=== PATIENT | male | born 1980 | race Hispanic/Latino ===

== ENCOUNTER 2017-03-31 09:29 | Emergency (ER) | payer OTHER ==
[2017-03-31 09:38] VITALS: O2SAT 98
[2017-03-31 09:39] VITALS: BMI 31.4
[2017-03-31] MEDS ORDERED: Sodium Chloride 0.9% 1,000 ML IV STA (10:09)
[2017-03-31] MEDS ORDERED: Alum-Mag Hydrox-Simethicone Susp (30 mL) PO STA (10:10)
[2017-03-31 10:23] LABS: BASO % 0.4 % (0.0-2.0); EOS # 0.2 K/uL (0.0-0.7); EOS % 2.2 % (0.0-4.0); LYMPH # 1.7 K/uL (1.0-4.3); LYMPH % 17.6 % (20.0-40.0); MEAN CELL VOLUME 81.2 fl (80.0-94.0); MEAN CORPUSCULAR HEMOGLOBIN 28.7 pg (27.0-31.0); MEAN CORPUSCULAR HGB CONC 35.4 g/dL (33.0-37.0); MEAN PLATELET VOLUME 7.8 fl (7.2-11.7); MONO # 1.1 K/uL (0.0-0.8); MONO % 11.4 % (0.0-10.0); NEUT # 6.5 K/uL (1.8-7.0); NEUT % 68.4 % (50.0-75.0); NRBC % 0.1 % (0.0-0.0); RED CELL DISTRIBUTION WIDTH 13.2 % (11.5-14.5); WHITE BLOOD COUNT 9.5 K/uL (4.8-10.8)
[2017-03-31 10:32] LABS: ALB/GLOB RATIO 1.4 (1.0-2.1); ALKALINE PHOSPHATASE 92 U/L (38-126); ALT/SGPT 65 U/L (21-72); AST/SGOT 61 U/L (17-59); BILIRUBIN,TOTAL 1.6 mg/dl (0.2-1.3); BLOOD UREA NITROGEN 12 mg/dl (9-20); CALCIUM 9.7 mg/dL (8.4-10.2); CARBON DIOXIDE 28 mmol/L (22-30); CHLORIDE 101 mmol/L (98-107); GFR AFRICAN-AMERICAN > 60; GLUCOSE,RANDOM 109 mg/dL (75-110); LIPASE 179 U/L (23-300); POTASSIUM 4.3 MMOL/L (3.6-5.0); SODIUM 142 mmol/l (132-148); TOTAL PROTEIN 8.2 G/DL (6.3-8.2)
[2017-03-31 10:43] LABS: RBC URINE 1 /hpf (0-3); URINE BILIRUBIN NEGATIVE (NEGATIVE); URINE BLOOD NEGATIVE (NEGATIVE); URINE COLOR YELLOW (YELLOW); URINE GLUCOSE (UA) NEG (Normal); URINE KETONE NEGATIVE (NEGATIVE); URINE LEUKOCYTE ESTERASE NEG Leu/uL (Negative); URINE PROTEIN NEGATIVE (NEGATIVE); URINE UROBILINOGEN 0.2-1.0 mg/dL (0.2-1.0); WBC URINE < 1 /hpf (0-5)
[2017-03-31] MEDS ORDERED: Atrop/Hyos/Scop/PhenoB Elixir PO ONE (11:00)
--- NOTE | 2017-03-31 11:04 | ED PDOC ---
HPI: Abdomen Time Seen by Provider: 03/31/17 09:50 Chief Complaint (Nursing): Abdominal Pain Chief Complaint (Provider): Abdominal Pain History Per: Patient History/Exam Limitations: no limitations Onset/Duration Of Symptoms: Days (x3), Intermittent Episodes Current Symptoms Are (Timing): Still Present Pain Scale Rating Of: 7 Quality Of Discomfort: "Pain" Associated Symptoms: Vomiting (non bloody). denies: Fever Exacerbating Factors: Other (worst at night) Last Bowel Movement: Yesterday Additional Complaint(s): Rick Gupta is a 36 year old male, with no past medical history, who presents to the emergency department complaining of a worsening intermittent abdominal pain associated with vomiting onset for 3 days. He reports 1 non bloody vomiting episode last night and decreased sleep secondary to pain. Patient states that he has had this pain for "years" but the pain has been worsening for the past couple of days. Pain is worst at night. He states that he has been evaluated multiple times for the same symptoms. He received an endoscopy in June, which came back normal. He takes Prilosec daily. Last bowel movement was yesterday. He denies any fever or chills. No further medical complaints. PMD: None provided. Past Medical History Reviewed: Historical Data, Nursing Documentation, Vital Signs Vital Signs: Last Vital Signs Temp 97.6 F 03/31/17 13:47 Pulse 84 03/31/17 13:47 Resp 18 03/31/17 13:47 BP 128/78 03/31/17 13:47 Pulse Ox 98 04/02/17 10:29 - Medical History PMH: No Chronic Diseases Denies: Fractures, TIA - Surgical History Other surgeries: Knee surgery - Family History Family History: States: Unknown Family Hx - Social History Current smoker - smoking cessation education provided: No Alcohol: Social Drugs: Denies - Home Medications Home Medications: Ambulatory Orders Medication Instructions Recorded Omeprazole Magnesium [Prilosec Otc] 40 mg PO DAILY 08/23/16 oxyCODONE/Acetaminophen [Percocet 1 tab PO Q6 PRN #20 tab 03/31/17 5/325 mg Tab] - Allergies Allergies/Adverse Reactions: Allergies Allergy/AdvReac Type Severity Reaction Status Date / Time No Known Allergies Allergy Verified 03/31/17 09:41 Review of Systems ROS Statement: Except As Marked, All Systems Reviewed And Found Negative Constitutional: Negative for: Fever, Chills Gastrointestinal: Positive for: Vomiting (non bloody, 1 episode), Abdominal Pain (intermittent) Physical Exam - Reviewed Nursing Documentation Reviewed: Yes Vital Signs Reviewed: Yes - Physical Exam Appears: Positive for: Non-toxic, No Acute Distress Head Exam: Positive for: ATRAUMATIC, NORMAL INSPECTION, NORMOCEPHALIC Skin: Positive for: Normal Color, Warm, Dry Eye Exam: Positive for: EOMI, Normal appearance, PERRL Neck: Positive for: Normal, Painless ROM, Supple Cardiovascular/Chest: Positive for: Regular Rate, Rhythm. Negative for: Murmur Respiratory: Positive for: Normal Breath Sounds. Negative for: Respiratory Distress Gastrointestinal/Abdominal: Positive for: Tenderness (epigastric and Right upper quadrant. ). Negative for: Other (bazan's sign) Back: Positive for: Normal Inspection. Negative for: L CVA Tenderness, R CVA Tenderness Extremity: Positive for: Normal ROM. Negative for: Deformity, Swelling Neurologic/Psych: Positive for: Alert, Oriented - Laboratory Results Result Diagrams: 03/31/17 10:20 03/31/17 10:20 - ECG O2 Sat by Pulse Oximetry: 98 (RA) Pulse Ox Interpretation: Normal Medical Decision Making Medical Decision Making: Initial Impression: Chronic abdominal pain, cholelithiasis, cholecystitis Initial Plan: --EKG --Urine dipstick --Maalox Plus 30 ml PO -- 5 ml PO --Lidocaine 2% Viscous 15 ml PO --NS IV 1,000 ml @ 1,000 mls/hr --Zofran Inj 4 mg IV --Abdomen limited (GB included) [US] --reevaluation 1131 Abdomen US FINDINGS: LIVER: Measures 17.6 cm in length. There is mild diffuse increased echogenicity of the liver parenchyma. No mass. No intrahepatic bile duct dilatation. GALLBLADDER: The gallbladder is distended, filled with sludge and there is mild wall thickening. No pericholecystic fluid or gallstones. The sonographic Bazan's sign is positive. COMMON BILE DUCT: Measures 4.4 mm. No stones. No dilatation. PANCREAS: Unremarkable as visualized. No mass. No ductal dilatation. RIGHT KIDNEY: Measures 12.4 cm in length. Normal echogenicity. No calculus, mass, or hydronephrosis. AORTA: No aneurysmal dilatation. IVC: Unremarkable. OTHER FINDINGS: None . IMPRESSION: 1. Mild hepatomegaly. Diffuse increased echogenicity in the liver may reflect hepatic steatosis however parenchymal infectious/ inflammatory etiologies cannot be entirely excluded. Clinical and laboratory correlation is advised. 2. Distended sludge filled gallbladder with mild wall thickening and positive sonographic Bazan's sign, the constellation of findings in the appropriate clinical setting could represent acute cholecystitis. Pt evaluated by engineering vice president in ED. Scribe Attestation: Documented by Castillo Drake, acting as a scribe for Shruthi Holt MD Provider Scribe Attestation: All medical record entries made by the Scribe were at my direction and personally dictated by me. I have reviewed the chart and agree that the record accurately reflects my personal performance of the history, physical exam, medical decision making, and the department course for this patient. I have also personally directed, reviewed, and agree with the discharge instructions and disposition. Disposition - Clinical Impression Clinical Impression: Biliary colic, Cholecystectomy planned - Disposition Referrals: Colin Aguayo MD [Staff Provider] - Disposition Time: 13:28 Condition: STABLE Additional Instructions: PLAN FOR GALLBLADDER REMOVAL ON MONDAY. Prescriptions: oxyCODONE/Acetaminophen [Percocet 5/325 mg Tab] 1 tab PO Q6 PRN #20 tab PRN Reason: Pain, Moderate (4-7) Instructions: Biliary Colic (ED) Forms: [email or web address] (Yi)
--- NOTE | 2017-03-31 11:33 | US ---
HISTORY: Epigastric/RUQ pain COMPARISON: None. TECHNIQUE: Sonographic evaluation of the right upper quadrant of the abdomen. FINDINGS: LIVER: Measures 17.6 cm in length. There is mild diffuse increased echogenicity of the liver parenchyma. No mass. No intrahepatic bile duct dilatation. GALLBLADDER: The gallbladder is distended, filled with sludge and there is mild wall thickening. No pericholecystic fluid or gallstones. The sonographic Bazan's sign is positive. COMMON BILE DUCT: Measures 4.4 mm. No stones. No dilatation. PANCREAS: Unremarkable as visualized. No mass. No ductal dilatation. RIGHT KIDNEY: Measures 12.4 cm in length. Normal echogenicity. No calculus, mass, or hydronephrosis. AORTA: No aneurysmal dilatation. IVC: Unremarkable. OTHER FINDINGS: None . IMPRESSION: 1. Mild hepatomegaly. Diffuse increased echogenicity in the liver may reflect hepatic steatosis however parenchymal infectious/ inflammatory etiologies cannot be entirely excluded. Clinical and laboratory correlation is advised. 2. Distended sludge filled gallbladder with mild wall thickening and positive sonographic Bazan's sign, the constellation of findings in the appropriate clinical setting could represent acute cholecystitis.
[2017-03-31 13:48] VITALS: BP 128/78; PULSE 84; RESP 18; TEMP 97.6
--- NOTE | 2017-04-03 12:44 | CARD ---
APPROVED REPORT EKG Measurement Heart [id number] SD [id number] [id number] <Conclusion> Normal sinus rhythm Normal ECG
== END 2017-03-31 13:51 | disposition home or self-care (01) ==
LOC: H.ER 09:29
DX: K80.64 Calculus of gallbladder and bile duct with chronic cholecystitis without obstruction (principal); G89.29 Other chronic pain
CPT/HCPCS: 76705; 80053; 81003; 83690; 85025; 93005; 96374; 99285; J2405; J7040

== ENCOUNTER 2017-04-03 12:11 | Inpatient (IN) | payer OTHER ==
--- NOTE | 2017-04-03 12:41 | CP.SDSHP ---
Same Day Surgery H & P - History Proposed Procedure: Laparoscopic Cholecystectomy w/ intraoperative cholangiogram Pre-Op Diagnosis: biliary cholic - Previous Medical/Surgical History Misc: Other (GERD) Previous Surgical History: left knee arthroscopy - Allergies Allergies: Allergies No Known Allergies Allergy (Verified 03/31/17 09:41) - Physical Exam General Appearance: non-toxic Vital Signs: Temp Pulse Resp BP Pulse Ox 99.8 F H 91 H 20 138/89 96 04/03/17 17:02 04/03/17 17:02 04/03/17 17:02 04/03/17 17:02 04/03/17 17:02 Mental Status: Alert & Oriented x3 Neuro: WNL Heart: WNL Lungs: WNL GI: WNL - {Optional Preform as Required} Abdomen: Other (RUQ TTP) - Impression Impression: 36 y/o M w/ biliary cholic, transaminitis, hyperbilirubinema Pt. Evaluated Today:Candidate for Anesthesia & Procedure: No (f/u MRCP and GI recommendations) - Date & Time Date: 04/03/17 Time: 12:41 Short Stay Discharge - Short Stay Discharge Admitting Diagnosis/Reason for Visit: K80.51 Referrals: FAMILY PROVIDER,NO [Primary Care Provider] -
[2017-04-03] MEDS ORDERED: Lidocaine 1% Inj (20ml) ONE (12:52)
[2017-04-03] MEDS ORDERED: Iohexol 300 100 ML IJ ONE (12:53)
[2017-04-03] MEDS ORDERED: Bupivacaine 0.5% Inj(30mL) ONE (12:53)
[2017-04-03] MEDS ORDERED: ceFAZolin IV 1 gm in Dextrose 0 GM/0 ML BAG IVPB ONE (12:53)
[2017-04-03 13:27] LABS: ALB/GLOB RATIO 1.2 (1.0-2.1); ALKALINE PHOSPHATASE 135 U/L (38-126); ALT/SGPT 109 U/L (21-72); AST/SGOT 85 U/L (17-59); BILIRUBIN,TOTAL 2.3 mg/dl (0.2-1.3); BLOOD UREA NITROGEN 17 mg/dl (9-20); CALCIUM 9.5 mg/dL (8.4-10.2); CARBON DIOXIDE 22 mmol/L (22-30); CHLORIDE 102 mmol/L (98-107); GFR AFRICAN-AMERICAN > 60; GLUCOSE,RANDOM 104 mg/dL (75-110); SODIUM 139 mmol/l (132-148); TOTAL PROTEIN 8.5 G/DL (6.3-8.2)
[2017-04-03 13:30] LABS: MEAN CELL VOLUME 82.1 fl (80.0-94.0); MEAN CORPUSCULAR HEMOGLOBIN 29.1 pg (27.0-31.0); MEAN CORPUSCULAR HGB CONC 35.4 g/dL (33.0-37.0); RED CELL DISTRIBUTION WIDTH 13.4 % (11.5-14.5); WHITE BLOOD COUNT 9.8 K/uL (4.8-10.8)
[2017-04-03] MEDS ORDERED: Propofol 10 mg/ml Inj (20 ML) ONE (13:32)
[2017-04-03] MEDS ORDERED: Midazolam 2 MG/2 ML VIAL ONE (13:32)
[2017-04-03] MEDS ORDERED: Lidocaine 4% (Laryng-O-Jet) Kit MM ONE (13:33)
[2017-04-03] MEDS ORDERED: Neostigmine Methylsulfate 2 MG/2 ML ML IV ONE (13:33)
[2017-04-03] MEDS ORDERED: Succinylcholine 200 mg/10 ml Inj IV ONE (13:33)
[2017-04-03] MEDS ORDERED: Rocuronium 10 mg/ml (5 ml) ONE (13:34)
[2017-04-03] MEDS ORDERED: Lidocaine 1% 5ml Abboject IV ONE (13:34)
[2017-04-03] MEDS ORDERED: Sodium Chloride 0.9% 50 ML IV ONE (14:17)
[2017-04-03] MEDS ORDERED: Gadodiamide 287 MG/ML VIAL (15ML) IV ONE (14:17)
[2017-04-03] MEDS: Sodium Chloride 0.9% 1,000 ML IV SCH (16:15)
--- NOTE | 2017-04-03 16:29 | MRI ---
PROCEDURE: Magnetic Resonance Cholangiopancreatography HISTORY: Hyperbilirubinemia, transaminitis, biliary colic COMPARISON: Comparison is made to the previous ultrasound of the abdomen dated 03/31/[address] of the abdomen dated 09/15/2010. TECHNIQUE: Multiplanar, multisequence MR images of the abdomen were obtained, including heavily T2 weighted MRCP images of the biliary system. Rotating maximum intensity projection images of the biliary system were generated. FINDINGS: MRCP: The common bile duct is of a normal caliber. No evidence of choledocholithiasis. No intrahepatic biliary ductal dilatation. LIVER: Liver is normal in size without evidence of focal lesion. There is a slight hepatic steatosis noted. The portal vein is patent. GALLBLADDER: The gallbladder is mildly distended demonstrate diffuse wall thickening surrounding with pericholecystic fluid. There is 9 millimeter stone at the gallbladder neck. Findings highly suspicious for acute cholecystitis. SPLEEN: Unremarkable. PANCREAS: Unremarkable. ADRENALS: Unremarkable. KIDNEYS: Unremarkable. AORTA: No aneurysm. ASCITES: None. OTHER FINDINGS: None. IMPRESSION: Findings suggestive of acute cholecystitis. Normal caliber of the common bile duct without evidence of choledocholithiasis. Slight hepatic steatosis.
[2017-04-03] MEDS: DiphenhydrAMINE 50 mg/ml Inj IVP PRN (22:23)
[2017-04-03] MEDS: Piperacillin/Tazobact 3.375 GM in Sodium Chloride 0.9% 100 ML IVPB SCH (22:23)
--- NOTE | 2017-04-03 22:40 | CP.PCM.CON ---
<Supriya Plummer - Last Filed: 04/03/17 22:48> History of Present Illness - History of Present Illness History of Present Illness: PGY4 Initial GI Consult Rick Gupta is a 36M w/ hx of chronic abd pain who presented to the ER with complaint of RUQ pain. Pt states that he has had this pain for more than a year. He notes that he has had multiple imaging studies including abd u/s and EGD. In the past, he notes that nothing was found. He states that his abd pain is located in the RUQ and radiates to his back. He notes that the pain start 3 days ago. He denies any aggrevating or alleviating factors. He was evaluated in the ER for possible Lap Marlys by surgery. His MRCP revealed a possible distal cytic duct filling defect and elevated LFTs. Pt's surgery was postponed until further GI eval. He denies nay hx of juandice or scleral icterus. He denies any previous hospitalizations for liver related issues. Denies any fever, chills or diaphoresis. Denies BRBPR, melena, or coffee-ground emesis. PMHx: none PSHx: none Family Hx: denies any GI cancer Social hx: denies smoking, social etoh, denies recreation drugs Endoscopy hx: 06/2016: EGD h. pylori neg, gastritis ROS: other than above, ROS is otherwise neg Past Patient History - Past Medical History & Family History Past Medical History?: No - Past Social History Smoking Status: Never Smoked - CARDIAC Hx Heart Attack: No - PULMONARY Hx Respiratory Disorders: No - NEUROLOGICAL Hx Neurological Disorder: No Hx Transient Ischemic Attacks (TIA): No - HEENT Hx HEENT Problems: No - RENAL Hx Chronic Kidney Disease: No - ENDOCRINE/METABOLIC Hx Endocrine Disorders: No - HEMATOLOGICAL/ONCOLOGICAL Hx Blood Disorders: No Hx Blood Transfusions: No - MUSCULOSKELETAL/RHEUMATOLOGICAL Hx Falls: No Hx Fractures: No - GASTROINTESTINAL Hx Gastrointestinal Disorders: No Other/Comment: heart burn - PSYCHIATRIC Hx Physical Abuse: No Hx Substance Use: No - SURGICAL HISTORY Hx Surgeries: Yes Hx Arthroscopy: Yes (Left knee 1992, 1993) Hx Eye Surgery: Yes (Lasik 2011) Other/Comment: Left ankle surgery 2002 - ANESTHESIA Hx Anesthesia: Yes Hx Anesthesia Reactions: No Hx Malignant Hyperthermia: No Has any member of the family had a problem w/ anesthesia?: No Meds Allergies/Adverse Reactions: Allergies Allergy/AdvReac Type Severity Reaction Status Date / Time cat dander Allergy SWELLING Verified 04/03/17 15:36 - Medications Medications: Current Medications Diphenhydramine HCl (Benadryl) 50 mg IVP HS PRN PRN Reason: Sleep Hydromorphone HCl (Dilaudid) 1 mg IVP Q3 PRN PRN Reason: Pain, moderate (4-7) Last Admin: 04/03/17 20:11 Dose: 1 mg Sodium Chloride (Sodium Chloride 0.9%) 1,000 mls @ 120 mls/hr IV .Q8H20M PATRICIA Last Admin: 04/03/17 16:15 Dose: 120 mls/hr Piperacillin Sod/Tazobactam (Sod 3.375 gm/ Sodium Chloride) 100 mls @ 100 mls/ hr IVPB Q6 PATRICIA PRN Reason: Protocol Ondansetron HCl (Zofran Inj) 4 mg IVP Q4 PRN PRN Reason: Nausea/Vomiting Pantoprazole Sodium (Protonix Inj) 40 mg IVP DAILY PATRICIA Physical Exam - Constitutional Appears: Well, No Acute Distress - Head Exam Head Exam: ATRAUMATIC, NORMOCEPHALIC - Eye Exam Eye Exam: Normal appearance - ENT Exam ENT Exam: Mucous Membranes Moist, Normal Exam - Neck Exam Neck exam: Positive for: Normal Inspection - Respiratory Exam Respiratory Exam: Clear to Auscultation Bilateral, NORMAL BREATHING PATTERN. absent: Rales, Rhonchi, Wheezes, Respiratory Distress - Cardiovascular Exam Cardiovascular Exam: REGULAR RHYTHM, +S1, +S2 - GI/Abdominal Exam GI & Abdominal Exam: Normal Bowel Sounds, Soft, Tenderness (RUQ). absent: Distended, Guarding, Organomegaly, Rebound, Rigid - Neurological Exam Neurological exam: Alert, Oriented x3 - Psychiatric Exam Psychiatric exam: Normal Affect, Normal Mood - Skin Skin Exam: Dry, Intact, Normal Color, Warm Results - Vital Signs Recent Vital Signs: Last Vital Signs Temp 99.8 F H 04/03/17 17:02 Pulse 91 H 04/03/17 17:02 Resp 20 04/03/17 17:02 BP 138/89 04/03/17 17:02 Pulse Ox 96 04/03/17 17:02 - Labs Result Diagrams: 04/03/17 13:11 04/03/17 13:11 Labs: Laboratory Results - last 24 hr 04/03/17 04/03/17 13:11 13:11 WBC 9.8 RBC 5.11 Hgb 14.9 Hct 42.0 MCV 82.1 MCH 29.1 MCHC 35.4 RDW 13.4 Plt Count 259 Sodium 139 Potassium 4.0 Chloride 102 Carbon Dioxide 22 Anion Gap 19 BUN 17 Creatinine 1.0 Est GFR ( Amer) > 60 Est GFR (Non-Af Amer) > 60 Random Glucose 104 Calcium 9.5 Total Bilirubin 2.3 H AST 85 H D ALT 109 H D Alkaline Phosphatase 135 H D Total Protein 8.5 H Albumin 4.6 Globulin 3.8 Albumin/Globulin Ratio 1.2 Assessment & Plan - Assessment and Plan (Free Text) Assessment: Rick Gupta is a 36M w/ no sog hx who presents with RUQ maxwell. Etiology is likely biliary colic with possible obstructing distal CBD stone vs cystic stone. Pt also presented with elevated LFTs likely 2/2 previous. 1. Acute Cholecystitis 2. Proximal Cystic duct stone 3. Possible Distal CBD filling defect 4. Elevated LFTs likely 2/2 to the above, r/o infectous etiology Plan: -will check viral serologies -will setup for EUS and possible ERCP if indicated tomorrow at [place] around 11 pm -[place] need transport [place] [facility] [place]NPO after midnight -recheck LFTs tomorrow, INR -informed nurse and spoke to setup transport -Dr. Edouard to perform procedure -Continue abx -rest of plan as per Surgery D/W Dr. Pacheco <Lex Pacheco MD - Last Filed: 04/04/17 10:46> Meds - Medications Medications: Current Medications Diphenhydramine HCl (Benadryl) 50 mg IVP HS PRN PRN Reason: Sleep Last Admin: 04/03/17 22:23 Dose: 50 mg Hydromorphone HCl (Dilaudid) 0.5 mg IVP Q2 PRN PRN Reason: Pain, moderate (4-7) Stop: 04/06/17 08:35 Sodium Chloride (Sodium Chloride 0.9%) 1,000 mls @ 120 mls/hr IV .Q8H20M [facility] Last Admin: 04/04/17 07:30 Dose: Not Given Piperacillin Sod/Tazobactam (Sod 3.375 gm/ Sodium Chloride) 100 mls @ 100 mls/ hr IVPB Q6 PATRICIA PRN Reason: Protocol Last Admin: 04/04/17 09:13 Dose: Not Given Ondansetron HCl (Zofran Inj) 4 mg IVP Q4 PRN PRN Reason: Nausea/Vomiting Pantoprazole Sodium (Protonix Inj) 40 mg IVP DAILY PATRICIA Last Admin: 04/04/17 09:12 Dose: Not Given Results - Vital Signs Recent Vital Signs: Last Vital Signs Temp 98.2 F 04/04/17 07:33 Pulse 85 04/04/17 07:33 Resp 20 04/04/17 07:33 BP 130/84 04/04/17 07:33 Pulse Ox 96 04/04/17 07:33 - Labs Result Diagrams: 04/03/17 13:11 04/03/17 13:11 Labs: Laboratory Results - last 24 hr 04/03/17 04/03/17 04/04/17 13:11 13:11 05:30 WBC 9.8 RBC 5.11 Hgb 14.9 Hct 42.0 MCV 82.1 MCH 29.1 MCHC 35.4 RDW 13.4 Plt Count 259 PT 13.4 H INR 1.2 Sodium 139 Potassium 4.0 Chloride 102 Carbon Dioxide 22 Anion Gap 19 BUN 17 Creatinine 1.0 Est GFR ( Amer) > 60 Est GFR (Non-Af Amer) > 60 Random Glucose 104 Calcium 9.5 Total Bilirubin 2.3 H AST 85 H D ALT 109 H D Alkaline Phosphatase 135 H D Total Protein 8.5 H Albumin 4.6 Globulin 3.8 Albumin/Globulin Ratio 1.2 Attending/Attestation - Attestation I have personally seen and examined this patient.: Yes I have fully participated in the care of the patient.: Yes I have reviewed all pertinent clinical information: Yes Notes (Text): 04/04/17 10:44 Patient seen with GI fellow last night. Late entry- This is a 36M yr old M who presents with RUQ pain with acute cholecystitis. MRCP concerning for ? distal CBD stone. He is scheduled for EUS at [facility] prior to [facility]. If positive will get ERCP. This was discussed with patient and girlfriend at bedside last night. NPO past midnight. Send coagulation profil. Discussed with surgical team
[2017-04-04] MEDS: Sodium Chloride 0.9% 1,000 ML IV SCH ×4 (00:49→23:05)
[2017-04-04] MEDS: Piperacillin/Tazobact 3.375 GM in Sodium Chloride 0.9% 100 ML IVPB SCH ×5 (05:03→21:05)
--- NOTE | 2017-04-04 08:33 | CP.PCM.PN ---
Subjective - Date & Time of Evaluation Date of Evaluation: 04/04/17 Time of Evaluation: 06:45 - Subjective Subjective: General Surgery- Dr. Aguayo Patient seen and examined at bedside this morning. RUQ abd pain still present however managed w/ current pain regiment. Currently NPO. Denies fevers, chills, chest pain, shortness of breath, nausea, vomiting, diarrhea. Objective - Vital Signs/Intake and Output Vital Signs (last 24 hours): Temp Pulse Resp BP Pulse Ox 98.2 F 85 20 130/84 96 04/04/17 07:33 04/04/17 07:33 04/04/17 07:33 04/04/17 07:33 04/04/17 07:33 - Medications Medications: Current Medications Diphenhydramine HCl (Benadryl) 50 mg IVP HS PRN PRN Reason: Sleep Last Admin: 04/03/17 22:23 Dose: 50 mg Hydromorphone HCl (Dilaudid) 1 mg IVP Q3 PRN PRN Reason: Pain, moderate (4-7) Last Admin: 04/04/17 05:07 Dose: 1 mg Sodium Chloride (Sodium Chloride 0.9%) 1,000 mls @ 120 mls/hr IV .Q8H20M PATRICIA Last Admin: 04/04/17 00:49 Dose: 120 mls/hr Piperacillin Sod/Tazobactam (Sod 3.375 gm/ Sodium Chloride) 100 mls @ 100 mls/ hr IVPB Q6 PATRICIA PRN Reason: Protocol Last Admin: 04/04/17 05:03 Dose: 100 mls/hr Ondansetron HCl (Zofran Inj) 4 mg IVP Q4 PRN PRN Reason: Nausea/Vomiting Pantoprazole Sodium (Protonix Inj) 40 mg IVP DAILY PATRICIA - Labs Labs: 04/03/17 13:11 04/03/17 13:11 PT 13.4 Seconds (9.8-13.1) H 04/04/17 05:30 INR 1.2 (0.9-1.2) 04/04/17 05:30 - Constitutional Appears: Non-toxic, No Acute Distress - Head Exam Head Exam: ATRAUMATIC - Eye Exam Eye Exam: EOMI. absent: Scleral icterus - ENT Exam ENT Exam: Mucous Membranes Moist - Respiratory Exam Respiratory Exam: NORMAL BREATHING PATTERN. absent: Accessory Muscle Use, Respiratory Distress - Cardiovascular Exam Cardiovascular Exam: +S1, +S2. absent: Bradycardia, Tachycardia - GI/Abdominal Exam GI & Abdominal Exam: Guarding, Soft, Tenderness. absent: Distended, Firm, Rigid , Organomegaly, Rebound Additional comments: Tender to RUQ voluntary guarding to palpation - Extremities Exam Extremities Exam: Normal Inspection. absent: Calf Tenderness - Back Exam Back Exam: NORMAL INSPECTION. absent: CVA tenderness (L), CVA tenderness (R) - Neurological Exam Neurological Exam: Alert, Awake, Oriented x3 - Psychiatric Exam Psychiatric exam: Normal Affect - Skin Skin Exam: Intact, Warm Assessment and Plan - Assessment and Plan (Free Text) Assessment: 36M w/ acute cholecystitis Plan: - GI plan for EUS possible ERCP at [facility] - plan for cholecystectomy tomorrow - anti-emetic and pain control PRN - IVF & Abx - GI/DVT ppx - further recs per Dr. Olivier Dominguez PGY1
[2017-04-04] MEDS: DiphenhydrAMINE 50 mg/ml Inj IVP PRN (22:20)
[2017-04-05] MEDS: Sodium Chloride 0.9% 1,000 ML IV SCH ×4 (02:47→23:00)
[2017-04-05] MEDS: Piperacillin/Tazobact 3.375 GM in Sodium Chloride 0.9% 100 ML IVPB SCH ×4 (03:16→22:27)
[2017-04-05] MEDS ORDERED: Bupivacaine 0.5% Inj(30mL) ONE (08:47)
[2017-04-05] MEDS ORDERED: ceFAZolin IV 1 gm in Dextrose 0 GM/0 ML BAG IVPB ONE (08:48)
[2017-04-05] MEDS ORDERED: Rocuronium 10 mg/ml (5 ml) ONE ×2 (09:10→10:30)
[2017-04-05] MEDS ORDERED: Succinylcholine 200 mg/10 ml Inj IV ONE (09:10)
[2017-04-05] MEDS ORDERED: Propofol 10 mg/ml Inj (20 ML) ONE ×2 (09:11→09:50)
[2017-04-05] MEDS ORDERED: Lidocaine 4% (Laryng-O-Jet) Kit MM ONE (09:11)
[2017-04-05] MEDS ORDERED: Lidocaine 2% MPF (5 ml) Inj ONE (09:11)
[2017-04-05] MEDS ORDERED: Midazolam 2 MG/2 ML VIAL ONE (09:44)
[2017-04-05] MEDS ORDERED: Lactated Ringer's 1,000 ML IV ONE ×4 (09:45→12:25)
[2017-04-05] MEDS ORDERED: Bupivacaine 0.5% 50 ML IJ ONE ×3 (10:00)
[2017-04-05] MEDS ORDERED: Desflurane Inhalation Anesthetic Liq (240 ml) ONE (10:04)
[2017-04-05] MEDS ORDERED: Neostigmine Methylsulfate 3mg/3ml Syringe IV ONE (11:23)
[2017-04-05] MEDS ORDERED: Edrophonium Chloride 10 MG/ML IJ ONE (11:27)
[2017-04-05] MEDS ORDERED: Neostigmine Methylsulfate 2 MG/2 ML ML IV ONE (11:28)
--- NOTE | 2017-04-05 11:28 | CP.PCM.PCO ---
Physician Communication Note - Physician Communication Note Physician Communication Note: s/p ERCp with sludge. For OR today. Will sign off
[2017-04-05] MEDS ORDERED: Dexamethasone 4 mg/1 ml ONE (11:31)
--- NOTE | 2017-04-05 12:51 | PCM.SURG1 ---
Surgeon's Initial Post Op Note - Surgeon's Notes Surgeon: Dr Aguayo Soda Dispenser: Dr Cottrell PGY3, Dr Arenas PGY2, Dr Dominguez PGY1 Type of Anesthesia: General Endo Pre-Operative Diagnosis: Acute cholecystitis Operative Findings: see report for full detail Post-Operative Diagnosis: Acute Cholecystitis Operation Performed: laparoscopic cholecystectomy Specimen/Specimens Removed: gallbladder. gallbladder fluid Estimated Blood Loss: EBL {In ML}: 700 Blood Products Given: N/A Drains Used: García Post-Op Condition: Good Date of Surgery/Procedure: 04/05/17 Time of Surgery/Procedure: 12:51
[2017-04-05] MEDS ORDERED: HYDROmorphone 0.5 mg/0.5 ml ISec IVP PRN (12:55)
[2017-04-05] MEDS: HYDROmorphone 0.5 mg/0.5 ml ISec IVP PRN ×4 (12:57→13:47)
[2017-04-05 15:27] LABS: HEMATOCRIT 35.5 % (35.0-51.0); MEAN CELL VOLUME 81.2 fl (80.0-94.0); MEAN CORPUSCULAR HEMOGLOBIN 28.9 pg (27.0-31.0); MEAN CORPUSCULAR HGB CONC 35.6 g/dL (33.0-37.0); WHITE BLOOD COUNT 8.4 K/uL (4.8-10.8)
[2017-04-05] MEDS: DiphenhydrAMINE 50 mg/ml Inj IVP PRN (23:43)
[2017-04-06] MEDS: Sodium Chloride 0.9% 1,000 ML IV SCH ×5 (00:10→21:28)
[2017-04-06] MEDS: Piperacillin/Tazobact 3.375 GM in Sodium Chloride 0.9% 100 ML IVPB SCH ×4 (04:00→21:29)
[2017-04-06 06:55] LABS: HEMATOCRIT 31.4 % (35.0-51.0); MEAN CELL VOLUME 80.6 fl (80.0-94.0); MEAN CORPUSCULAR HEMOGLOBIN 28.7 pg (27.0-31.0); MEAN CORPUSCULAR HGB CONC 35.6 g/dL (33.0-37.0); RED CELL DISTRIBUTION WIDTH 13.1 % (11.5-14.5); WHITE BLOOD COUNT 7.5 K/uL (4.8-10.8)
[2017-04-06 07:10] LABS: ALB/GLOB RATIO 1.1 (1.0-2.1); ALKALINE PHOSPHATASE 91 U/L (38-126); ALT/SGPT 101 U/L (21-72); AST/SGOT 94 U/L (17-59); BILIRUBIN,TOTAL 1.3 mg/dl (0.2-1.3); BLOOD UREA NITROGEN 10 mg/dl (9-20); CALCIUM 8.5 mg/dL (8.4-10.2); CARBON DIOXIDE 25 mmol/L (22-30); CHLORIDE 103 mmol/L (98-107); GFR AFRICAN-AMERICAN > 60; GLUCOSE,RANDOM 109 mg/dL (75-110); POTASSIUM 3.8 MMOL/L (3.6-5.0); SODIUM 137 mmol/l (132-148); TOTAL PROTEIN 6.4 G/DL (6.3-8.2)
--- NOTE | 2017-04-06 07:23 | CP.PCM.PN ---
Subjective - Date & Time of Evaluation Date of Evaluation: 04/06/17 Time of Evaluation: 06:00 - Subjective Subjective: General Surgery Note for Dr. Aguayo Patient seen and examined at bedside. No acute event overnight. Patient resting in bed comfortably. He is s/p laparoscopic cholecystectomy POD#1. Patient complaining of mild abdominal pain. He is tolerating CLD. He denies nausea/ vomiting. WILLA drain produced 60 cc of sanguinous output in last 12 hrs. No other complaints at this time. Objective - Vital Signs/Intake and Output Vital Signs (last 24 hours): Temp Pulse Resp BP Pulse Ox 99.5 F 97 H 19 119/76 92 L 04/06/17 04:00 04/06/17 04:00 04/06/17 04:00 04/06/17 04:00 04/06/17 04:00 Intake and Output: 04/06/17 04/06/17 06:59 18:59 Output Total 60 Balance -60 - Medications Medications: Current Medications Diphenhydramine HCl (Benadryl) 50 mg IVP HS PRN PRN Reason: Sleep Last Admin: 04/05/17 23:43 Dose: 50 mg Hydromorphone HCl (Dilaudid) 1 mg IVP Q3H PRN PRN Reason: Pain, moderate (4-7) Stop: 04/06/17 08:35 Last Admin: 04/06/17 04:03 Dose: 1 mg Sodium Chloride (Sodium Chloride 0.9%) 1,000 mls @ 120 mls/hr IV .Q8H20M [facility] Last Admin: 04/05/17 08:52 Dose: 120 mls/hr Piperacillin Sod/Tazobactam (Sod 3.375 gm/ Sodium Chloride) 100 mls @ 100 mls/ hr IVPB Q6 PATRICIA PRN Reason: Protocol Last Admin: 04/06/17 04:00 Dose: 100 mls/hr Sodium Chloride (Sodium Chloride 0.9%) 1,000 mls @ 100 mls/hr IV .Q10H [facility] Last Admin: 04/05/17 20:06 Dose: 100 mls/hr Ondansetron HCl (Zofran Inj) 4 mg IVP Q4 PRN PRN Reason: Nausea/Vomiting Pantoprazole Sodium (Protonix Inj) 40 mg IVP DAILY [facility] Last Admin: 04/05/17 08:52 Dose: 40 mg - Labs Labs: 04/06/17 06:15 04/06/17 06:15 PT 13.4 Seconds (9.8-13.1) H 04/04/17 05:30 INR 1.2 (0.9-1.2) 04/04/17 05:30 - Constitutional Appears: No Acute Distress - Head Exam Head Exam: ATRAUMATIC, NORMOCEPHALIC - Eye Exam Eye Exam: Normal appearance - ENT Exam ENT Exam: Mucous Membranes Moist - Respiratory Exam Respiratory Exam: NORMAL BREATHING PATTERN - Cardiovascular Exam Cardiovascular Exam: REGULAR RHYTHM - GI/Abdominal Exam GI & Abdominal Exam: Soft, Tenderness. absent: Distended, Firm, Guarding, Rigid , Rebound Additional comments: incision site dressings clean, dry and intact - Extremities Exam Extremities Exam: Normal Capillary Refill - Neurological Exam Neurological Exam: Alert, Awake, Oriented x3 - Psychiatric Exam Psychiatric exam: Normal Affect, Normal Mood - Skin Skin Exam: Dry, Intact, Normal Color, Warm Assessment and Plan - Assessment and Plan (Free Text) Plan: 36 M s/p laparoscopic cholecystectomy POD #1 -CLD, ADAT -IV fluids -IV Antibiotics -Analgesics/Anti-emetics PRN -OOB/Encourage ambulation/IS -Discussed with Dr. Olivier Deluca PGY1
[2017-04-06] MEDS: Oxycodone/Acetaminophen 5/325 mg Tab PO PRN ×3 (11:16→20:28)
[2017-04-06] MEDS: DiphenhydrAMINE 50 mg/ml Inj IVP PRN (22:16)
[2017-04-07] MEDS: Oxycodone/Acetaminophen 5/325 mg Tab PO PRN (02:03)
[2017-04-07] MEDS: Piperacillin/Tazobact 3.375 GM in Sodium Chloride 0.9% 100 ML IVPB SCH ×3 (04:41→16:09)
[2017-04-07] MEDS: Sodium Chloride 0.9% 1,000 ML IV SCH ×4 (05:01→15:21)
[2017-04-07 06:46] LABS: HEMATOCRIT 30.9 % (35.0-51.0); MEAN CELL VOLUME 82.7 fl (80.0-94.0); MEAN CORPUSCULAR HGB CONC 35.1 g/dL (33.0-37.0); RED CELL DISTRIBUTION WIDTH 12.9 % (11.5-14.5); WHITE BLOOD COUNT 7.4 K/uL (4.8-10.8)
[2017-04-07 06:57] LABS: ALKALINE PHOSPHATASE 96 U/L (38-126); ALT/SGPT 105 U/L (21-72); AST/SGOT 89 U/L (17-59); BILIRUBIN,TOTAL 1.4 mg/dl (0.2-1.3); BLOOD UREA NITROGEN 9 mg/dl (9-20); CALCIUM 8.4 mg/dL (8.4-10.2); CARBON DIOXIDE 28 mmol/L (22-30); CHLORIDE 103 mmol/L (98-107); GFR AFRICAN-AMERICAN > 60; GLUCOSE,RANDOM 106 mg/dL (75-110); POTASSIUM 4.3 MMOL/L (3.6-5.0); SODIUM 139 mmol/l (132-148); TOTAL PROTEIN 6.4 G/DL (6.3-8.2)
[2017-04-07 07:07] LABS: ALB/GLOB RATIO 1.1 (1.0-2.1)
--- NOTE | 2017-04-07 08:19 | OP ---
PROCEDURE DATE: Rick Gupta is admitted to [facility], having had symptoms consistent with chronic cholecystitis and acute cholecystitis recently. An ERCP was done yesterday by Dr. Edouard showing sludge and possible small stone. A sphincterotomy was done. Slight elevations in liver functions are noted. PREOPERATIVE DIAGNOSES: Iavle-ej-rghkwph cholecystitis and lithiasis. OPERATION PERFORMED: Laparoscopic cholecystectomy. SURGEON: Colin Aguayo MD FILM DEVELOPER: . ESTIMATED BLOOD LOSS: 100 mL. COMPLICATIONS: None. FINDINGS: Acute cholecystitis with tremendous amount of inflammation. DESCRIPTION OF PROCEDURE: In the operating room, patient was identified by name, name of procedure, laterality, my leonard, the consent, his birthday, and number. I had a long discussion of the risks and benefits in the presence of, I believe, the fiancee, and he understands and accepts. Having achieved a successful time-out with the abdomen prepped and draped with chlorhexidine and the usual drapes, the abdomen was accessed through the Veress needle to the supraumbilical fold. The Visiport was placed and laparoscopy performed without issue. Clearly, in the right upper quadrant, there was inflammation with the omentum caking on to the gallbladder. A xiphoid 5 and two lateral 5s were placed and the omentum was peeled off the gallbladder; some bleeding noted initially that required cautery. This having been done, the gallbladder was aspirated and the fundus pulled up with a Prestige and following the gallbladder down, eventually the infundibulum was pulled up. This needed to be with two Prestige clamps. The end of the gallbladder was found very nicely and peeling down on the peritoneum and then the soft tissue structures eventually came into view. Starting from the gallbladder, the infundibulum was down very low and below the cystic duct and this was pulled up and eventually pulled over to expose the Calot's triangle. Anteriorly in this area, an artery was identified and this was cleaned. Posterior to that, the clear cystic duct was identified. There were two small vessels, submillimeter, which were eventually burned. High up by the liver, this was cleaned nicely and eventually we came down to a very nice view of safety noting that the duodenum had been pushed down and was a very long gallbladder, but the visualization was beautiful. To expose the cystic duct a little bit better, the cystic artery was doubly clipped and divided under direct vision. This allowed good visualization of the cystic duct. It was clean, going directly to the gallbladder. It was cleaned circumferentially, doubly clipped, and divided. This allowed access to some areolar tissue behind it, that was cauterized with the hook dissector. The gallbladder was then dissected off the liver bed using the spatula and the hook. There was considerable amount of oozing that required cautery and a drain would be placed, García, through one of the lateral 5-mm ports. The gallbladder was large, it was placed in a bag as much as possible, and removed through the umbilicus with dissection. The abdomen was copiously irrigated. The drain was placed, trimmed down to see if we can place. The incisions were then closed in the usual manner with #2 PDS at the umbilicus, subcuticular Vicryl, and subcuticular PDS. The wounds were injected with Marcaine and closed with Dermabond. Patient was taken to recovery room in good condition after the sponge and needle counts were declared correct. Colin Aguayo MD
--- NOTE | 2017-04-07 09:30 | CP.PCM.DIS ---
Provider - Provider Date of Admission: 04/03/17 13:31 Attending physician: Colin Aguayo MD Primary care physician: NO FAMILY PROVIDER Time Spent in preparation of Discharge (in minutes): 25 Hospital Course - Lab Results Lab Results: Micro Results 04/05/17 17:24 Gallbladder Gram Stain - Final 04/05/17 17:24 Gallbladder Wound Culture - Preliminary NO GROWTH AFTER 24 HOURS Most Recent Lab Values WBC 7.4 K/uL (4.8-10.8) 04/07/17 06:34 RBC 3.74 Mil/uL (4.40-5.90) L 04/07/17 06:34 Hgb 10.9 g/dL (12.0-18.0) L 04/07/17 06:34 Hct 30.9 % (35.0-51.0) L 04/07/17 06:34 MCV 82.7 fl (80.0-94.0) D 04/07/17 06:34 MCH 29.0 pg (27.0-31.0) 04/07/17 06:34 MCHC 35.1 g/dL (33.0-37.0) 04/07/17 06:34 RDW 12.9 % (11.5-14.5) 04/07/17 06:34 Plt Count 265 K/uL (130-400) 04/07/17 06:34 PT 13.4 Seconds (9.8-13.1) H 04/04/17 05:30 INR 1.2 (0.9-1.2) 04/04/17 05:30 Sodium 139 mmol/l (132-148) 04/07/17 06:34 Potassium 4.3 MMOL/L (3.6-5.0) 04/07/17 06:34 Chloride 103 mmol/L (98-107) 04/07/17 06:34 Carbon Dioxide 28 mmol/L (22-30) 04/07/17 06:34 Anion Gap 12 (10-20) 04/07/17 06:34 BUN 9 mg/dl (9-20) 04/07/17 06:34 Creatinine 1.0 mg/dl (0.8-1.5) 04/07/17 06:34 Est GFR ( Amer) > 60 04/07/17 06:34 Est GFR (Non-Af Amer) > 60 04/07/17 06:34 Random Glucose 106 mg/dL (75-110) 04/07/17 06:34 Calcium 8.4 mg/dL (8.4-10.2) 04/07/17 06:34 Total Bilirubin 1.4 mg/dl (0.2-1.3) H 04/07/17 06:34 AST 89 U/L (17-59) H 04/07/17 06:34 ALT 105 U/L (21-72) H 04/07/17 06:34 Alkaline Phosphatase 96 U/L (38-126) 04/07/17 06:34 Total Protein 6.4 G/DL (6.3-8.2) 04/07/17 06:34 Albumin 3.3 g/dL (3.5-5.0) L 04/07/17 06:34 Globulin 3.1 gm/dL (2.2-3.9) 04/07/17 06:34 Albumin/Globulin Ratio 1.1 (1.0-2.1) 04/07/17 06:34 Hepatitis A Ab Total Antibody neg (NEGATIVE) 04/04/17 05:30 Hep Bs Antigen Negative (NEGATIVE) 04/04/17 05:30 Hep Bs Antibody Negative (NEGATIVE) 04/04/17 05:30 Hep B Core IgM Ab Negative (NEGATIVE) 04/04/17 05:30 Hepatitis C Antibody Negative (NEGATIVE) 04/04/17 05:30 - Hospital Course Hospital Course: 36 y/o M presents to [facility] on Tuesday 04/03 for elective laparoscopic cholecystectomy. Pre-op labs showed elevated T.Bili and LFTs. Surgery was postponed and pt was admitted for further workup. MRCP and EUS were negative and pt went for laparoscopic cholecystectomy on 04/05. Pt tolerated the procedure well. Pt was discharged on POD#2. Pt was instructed to follow to with Dr. Aguayo in his office within 1 week. Discharge Exam - Head Exam Head Exam: ATRAUMATIC, NORMOCEPHALIC - Eye Exam Eye Exam: Normal appearance - ENT Exam ENT Exam: Mucous Membranes Moist - Respiratory Exam Respiratory Exam: NORMAL BREATHING PATTERN. absent: Accessory Muscle Use, Respiratory Distress - Cardiovascular Exam Cardiovascular Exam: absent: Bradycardia, Tachycardia - GI/Abdominal Exam GI & Abdominal Exam: Soft, Tenderness (appropriate TTP ). absent: Distended, Guarding, Rebound Additional comments: drain w/ scant serosanguinous output dressings c/d/i - Extremities Exam Extremities exam: normal inspection - Neurological Exam Neurological exam: Alert, Normal Gait, Oriented x3 - Psychiatric Exam Psychiatric exam: Normal Affect, Normal Mood - Skin Skin Exam: Dry, Normal Color, Warm Discharge Plan - Follow Up Plan Condition: GOOD Disposition: HOME/ ROUTINE Instructions: Yamil-Velazquez Drain Care (DC), Laparoscopic Cholecystectomy (DC) , Abdominal Pain (ED), Care For Your Absorbable Stitches (DC) Additional Instructions: Follow up with Dr. Aguayo in office in 1 week Follow up with PMD within 1 week Take all medication as prescribed May take over the counter pain medication as needed Refrain from showering until drain removed do not soak incisions; no pools, tubs, baths. return to the ED if fever >100.4, pain, redness, swelling, drainage from incisions Referrals: FAMILY PROVIDER,NO [Primary Care Provider] - Colin Aguayo MD [Staff Provider] - Dusty Guidry MD [Medical Doctor] -
[2017-04-07] MEDS ORDERED: Iohexol 240 (50 ml) PO ONE (10:00)
--- NOTE | 2017-04-07 15:29 | CT ---
PROCEDURE: CT Abdomen and Pelvis without intravenous contrast HISTORY: cont abd pain; s/p lap tasha COMPARISON: None. TECHNIQUE: With oral contrast. Radiation dose: Total exam DLP = 1346.7 mGy-cm. This CT exam was performed using one or more of the following dose reduction techniques: Automated exposure control, adjustment of the mA and/or kV according to patient size, and/or use of iterative reconstruction technique. FINDINGS: LOWER THORAX: Right lower and middle lobe subsegmental atelectasis. LIVER: Unremarkable. No gross lesion or ductal dilatation. GALLBLADDER AND BILE DUCTS: Interval cholecystectomy with surgical clips in place. PANCREAS: Unremarkable. No gross lesion or ductal dilatation. SPLEEN: Unremarkable. ADRENALS: Unremarkable. No mass. KIDNEYS AND URETERS: Unremarkable. No hydronephrosis. No solid mass. VASCULATURE: Unremarkable. No aortic aneurysm. BOWEL: Reactive thickening of the duodenum, related to postoperative changes. No obstruction. APPENDIX: Unremarkable. Normal appendix. PERITONEUM: Surgical drain entering in the right lower quadrant, coursing up to the right upper quadrant with tip in the midline. Nonspecific 2.5 x 1.8 centimeter soft tissue attenuation structure in the right upper quadrant along the inferior liver margin in the gallbladder fossa surrounded by a thin rim of fat. Right upper quadrant fat stranding and scattered punctate foci of free air, postoperative in nature. LYMPH NODES: Unremarkable. No enlarged lymph nodes. BLADDER: Unremarkable. REPRODUCTIVE: Unremarkable. BONES: No acute fracture. OTHER FINDINGS: Postsurgical changes in the ventral abdominal wall. IMPRESSION: Interval cholecystectomy. Nonspecific 2.5 x 1.8 centimeter soft tissue attenuation structure in the gallbladder fossa posteromedial to the WILLA drainage catheter. This is very nonspecific and may represent focal postoperative changes/ hematoma, right upper quadrant fatty infarction among other possibilities with retained surgical sponge/gauze not excluded. Contrast-enhanced MRI of the abdomen can be obtained for further evaluation. Additional findings as above. Findings conveyed FAVIO Marie by Dr. Lou at 3:25 p.m. on 04/07/2017.
[2017-04-07 15:32] VITALS: BP 126/74; PULSE 92; RESP 18; TEMP 98.6; O2SAT 96
== END 2017-04-07 16:30 | disposition home or self-care (01) | DRG 419 ==
LOC: H.OPSURG 12:11 → H.MEDSURG1 13:31
PROVIDERS: ADMIT Surgery; ATTEND Surgery
PROC: 0F798ZZ Dilation of Common Bile Duct, Via Natural or Artificial Opening Endoscopic (ICD-10-PCS; 2017-04-04)
PROC: BF10YZZ Fluoroscopy of Bile Ducts using Other Contrast (ICD-10-PCS; 2017-04-04)
PROC: 0FT44ZZ Resection of Gallbladder, Percutaneous Endoscopic Approach (ICD-10-PCS; principal; 2017-04-05 09:30)
DX: K80.12 Calculus of gallbladder with acute and chronic cholecystitis without obstruction (principal); E80.6 Other disorders of bilirubin metabolism